=== PATIENT | female | born 1955 | race African-American/Black ===

== ENCOUNTER → 2016-11-08 | Outpatient (CLI) | payer MEDICARE, BC ==
[~2016-11-08] MED LIST: B50; LOSA50TA3; MAXZIDE; MELO15TA13; METF500T
[2016-11-08 12:36] LABS: T4 FREE 1.09 ng/dL (0.76-1.46)
[2016-11-11 13:07] LABS: MICROALBUMIN 24 HR URINE < 9.6 mg/day (<30.0); MICROALBUMIN URINE < 3.0 ug/mL (Not Estab.)
== END | disposition home or self-care (01) ==
LOC: LAB 11:41
PROVIDERS: ATTEND Internal Medicine Endocrinology, Diabetes & Metabolism
DX: E04.2 Nontoxic multinodular goiter (principal); E11.65 Type 2 diabetes mellitus with hyperglycemia; E11.29 Type 2 diabetes mellitus with other diabetic kidney complication; N18.9 Chronic kidney disease, unspecified
CPT/HCPCS: 36415; 82043; 83036; 84439; 84443; 84481; 84681; 86376

== ENCOUNTER 2021-09-29 14:17 | Emergency (ER) | payer BC, MEDICAID, MEDICARE, OTHER ==
[~2021-09-29] VITALS: Ht 157.5 cm; Wt 92.0 kg
[2021-09-29 14:25] VITALS: BP 166/74
[2021-09-29 17:20] LABS: BASOPHILS % 0.6 % (0.0-2.0); EOSINOPHILS % 6.3 % (0.0-5.0); HEMATOCRIT. 39.1 % (36.0-48.0); HEMOGLOBIN. 13.3 g/dL (12.0-16.0); LYMPHOCYTES % 36.3 % (20.0-50.0); MEAN CORPUSCULAR HEMOGLOBIN 30.1 pg (28.0-32.0); MEAN CORPUSCULAR VOLUME 88.5 fL (81.0-99.0); MEAN PLATELET VOLUME 7.9 fl (7.4-10.4); MONOCYTES % 5.7 % (2.0-8.0); NEUTROPHILS % 51.1 % (40.0-76.0); PLATELET 358 x1000/uL (130-400); RED BLOOD CELL COUNT 4.41 mill/uL (4.2-5.4); RED CELL DISTRIBUTION WIDTH 14.3 % (11.6-14.6)
[2021-09-29 17:25] LABS: CHLORIDE 105 mEq/L (98-107)
[2021-09-29 17:54] LABS: CLARITY URINE CLEAR (CLEAR); COLOR URINE YELLOW (YELLOW); KETONES URINE NEGATIVE (NEGATIVE); LEUKOCYTE ESTERASE URINE NEGATIVE (NEGATIVE); NITRITE URINE NEGATIVE (NEGATIVE); OCCULT BLOOD URINE NEGATIVE (NEGATIVE); PH URINE 5.5 (4.5-8.0); PROTEIN URINE NEGATIVE (NEGATIVE); SPECIFIC GRAVITY URINE 1.022 (1.005-1.030); UROBILINOGEN URINE 0.2 E.U./dL (0.2-1.0)
[2021-09-29] MEDS ORDERED: MAGNESIUM/ALUMINUM HYDROXIDE/SIMETHICONE 30ML UDC PO STA (18:59)
[2021-09-29] MEDS ORDERED: VISCOUS LIDOCAINE 2% 15 ML UDC PO STA (18:59)
[2021-09-29] MEDS ORDERED: FAMOTIDINE 20MG TABLET PO ONE (19:00)
[2021-09-29] MEDS ORDERED: FAMO20TA8 MT (20:25)
[2021-09-29] MEDS ORDERED: MAG-55 MT (20:25)
== END 2021-09-29 20:45 | disposition home or self-care (01) ==
LOC: ER 14:17
DX: R10.9 Unspecified abdominal pain (principal); E11.9 Type 2 diabetes mellitus without complications; I10 Essential (primary) hypertension; Z90.49 Acquired absence of other specified parts of digestive tract
CPT/HCPCS: 36415; 74176; 80053; 81003; 84484; 85025; 93005; 99285

== ENCOUNTER 2024-07-27 12:51 | Emergency (ER) | payer OTHER, MEDICAID ==
[~2024-07-27] VITALS: Ht 165.1 cm; Wt 69.0 kg
[~2024-07-27 12:51] MED LIST changes: +FAMO20TA8 MT; +LOSA-413; -LOSA50TA3; +MAG-55 MT
[2024-07-27 12:59] VITALS: TEMP 37; O2SAT 100
[2024-07-27] MEDS: ACETAMINOPHEN 325MG TABLET PO STA (14:18)
[2024-07-27] MEDS: CEFTRIAXONE SODIUM 1G VIAL IM ONE (14:18)
[2024-07-27] MEDS: KETOROLAC 15MG/ML VIAL IM ONE (14:20)
[2024-07-27] MEDS: LIDOCAINE HCL/PF 1% 10 MG/ML 5ML VIAL INFIL ONE (14:22)
[2024-07-27] MEDS ORDERED: NAPR-681 MT (14:33)
[2024-07-27] MEDS ORDERED: AMOX1TAB16 MT (14:33)
[2024-07-27] MEDS ORDERED: SULF1TAB48 MT (14:33)
[2024-07-27 14:45] VITALS: BP 137/63; PULSE 65; RESP 12; O2SAT 95
== END 2024-07-27 14:48 | disposition home or self-care (01) ==
LOC: ER 13:33
DX: K04.7 Periapical abscess without sinus (principal); L03.211 Cellulitis of face; I10 Essential (primary) hypertension; E11.9 Type 2 diabetes mellitus without complications; Z90.49 Acquired absence of other specified parts of digestive tract; Z79.84 Long term (current) use of oral hypoglycemic drugs; Z79.1 Long term (current) use of non-steroidal anti-inflammatories (NSAID); Z79.899 Other long term (current) drug therapy
CPT/HCPCS: 99284; 96372; J1885; J0696; J2003